=== PATIENT | female | born 1960 | race Caucasian/White ===

== ENCOUNTER 2021-04-05 06:53 | Inpatient (IN) | payer OTHER ==
[~2021-04-05] VITALS: Ht 180.3 cm; Wt 61.2 kg
[~2021-04-05 06:53] MED LIST: AMLODIPINE BESYL5 MG PO; ASPIRIN EC81 MG PO; ATORVASTATIN CA40 MG PO; BASAGLAR K100 UNIT/1 SC; BUMETANIDE2 MG PO; BUMEX 1MG TABLET1 MG PO; CLARITIN 10MG T10 MG PO; D3-501250 MCG PO; DOXYCYCLINE HY100 M2 PO; FUROSEMIDE20 MG PO; HYDRALAZINE HCL50 MG PO; IMDUR ER TAB 3030 MG PO; LOPRESSOR 50 MG50 MG PO; LORATADINE-D 11 EACH PO; NORVASC 5 MG TAB5 MG PO; ONDANSETRON ODT8 MG PO; PANTOPRAZOLE SO40 MG PO; POTASSIUM CHLO20 ME2 PO; SODIUM BICARBO650 MG PO
[2021-04-05 07:39] LABS: HEMOGLOBIN 11.3 gm/dl (12.3-15.3); RED BLOOD COUNT 3.83 M/UL (4.00-5.10); WHITE BLOOD COUNT 7.4 K/UL (4.5-11.0)
[2021-04-05] MEDS ORDERED: BUMETANIDE1 MG PO (11:51)
[2021-04-05] MEDS ORDERED: NOVOLOG FL100 UNIT/1 INJ (11:53)
[2021-04-05] MEDS ORDERED: ISOSORBIDE MONO60 MG PO (11:54)
[2021-04-05] MEDS ORDERED: NOVOLOG MI100 UNIT/1 SC (18:18)
[2021-04-05] MEDS ORDERED: CREON DR 6,0001 EACH PO (18:33)
[2021-04-06 02:32] LABS: ACINETOBACTER BAUMANNII Not Detected (Negative); CANDIDA ALBICANS Not Detected (Negative); CANDIDA KRUSEI Not Detected (Negative); CANDIDA TROPICALIS Not Detected (Negative); ENTEROCOCCUS Not Detected (Negative); ESCHERICHIA COLI Not Detected (Negative); HAEMOPHILUS INFLUENZAE Not Detected (Negative); KLEBSIELLA OXYTOCA Not Detected (Negative); KLEBSIELLA PNEUMONIAE Not Detected (Negative); KPC-CARBAPENEM-RESISTANCE GENE Not Detected (Negative); PROTEUS Not Detected (Negative); PSEUDOMONAS AERUGINOSA Not Detected (Negative); SERRATIA MARCESANS Not Detected (Negative); STAPHYLOCOCCUS Not Detected (Negative); STAPHYLOCOCCUS AUREUS Not Detected (Negative); STREP AGALACTIAE (GROUP B) Not Detected (Negative); STREP PYOGENES (GROUP A) Not Detected (Negative); STREPTOCOCCUS Not Detected (Negative); mecA (METHICILLIN RESIST GENE Not Detected (Negative); vanA/B (VANCOMYCIN RESIST GENE Not Detected (Negative)
[2021-04-06 07:37] LABS: HEMOGLOBIN 10.4 gm/dl (12.3-15.3)
[2021-04-06 07:47] LABS: RED BLOOD COUNT 3.44 M/UL (4.00-5.10)
--- NOTE | 2021-04-06 11:16 | NUR ---
0945- PATIENT LEFT FOR DIAYLSIS AT THIS TIME/
--- NOTE | 2021-04-06 11:39 | NUR ---
1138- CALLED POSITIVE BLOOD CULTURE RESULT TO DR. MEAD.
[2021-04-09 07:26] LABS: HEMOGLOBIN 9.8 gm/dl (12.3-15.3); RED BLOOD COUNT 3.31 M/UL (4.00-5.10)
--- NOTE | 2021-04-09 15:09 | NUR ---
pt is in dialysis
[2021-04-09] MEDS ORDERED: CEFPODOXIME PR200 MG PO (18:49)
[2021-04-09] MEDS ORDERED: LISINOPRIL10 MG PO (18:49)
--- NOTE | 2021-04-09 19:49 | NUR ---
1909- SPOKE WITH THE PATIENT ABOUT HOME HEALTH AND SHE STATES SHE ALREADY HAS HOME HEALTH SET UP AND THEY HAVE BEEN COMING OUT TO HER HOUSE.
== END 2021-04-09 19:45 | disposition home health service (06) | DRG 689 ==
LOC: ER1 06:53 → MED SURG 4 10:33 → CDU 10:33 → MED SURG 4 14:26
PROVIDERS: Emergency Medicine; Physician Assistant Medical; ADMIT Internal Medicine
DX: N30.00 Acute cystitis without hematuria (principal); N18.6 End stage renal disease; Z20.822 Contact with and (suspected) exposure to COVID-19; I13.0 Hypertensive heart and chronic kidney disease with heart failure and stage 1 through stage 4 chronic kidney disease, or unspecified chronic kidney disease; I50.32 Chronic diastolic (congestive) heart failure; Z96.643 Presence of artificial hip joint, bilateral; F17.210 Nicotine dependence, cigarettes, uncomplicated; B96.20 Unspecified Escherichia coli [E. coli] as the cause of diseases classified elsewhere; B96.89 Other specified bacterial agents as the cause of diseases classified elsewhere; E11.649 Type 2 diabetes mellitus with hypoglycemia without coma; E11.22 Type 2 diabetes mellitus with diabetic chronic kidney disease; J44.9 Chronic obstructive pulmonary disease, unspecified; B95.5 Unspecified streptococcus as the cause of diseases classified elsewhere; Z99.2 Dependence on renal dialysis; Z79.82 Long term (current) use of aspirin; Z79.4 Long term (current) use of insulin; Z99.81 Dependence on supplemental oxygen; Z90.49 Acquired absence of other specified parts of digestive tract; Z90.710 Acquired absence of both cervix and uterus; Z88.0 Allergy status to penicillin; Z88.2 Allergy status to sulfonamides; Z82.49 Family history of ischemic heart disease and other diseases of the circulatory system; Z91.15 Patient's noncompliance with renal dialysis
CPT/HCPCS: 36415; 71045; 80048; 80053; 80202; 81001; 82550; 82553; 82962; 83735; 83874; 84484; 85025; 85027; 87040; 87077; 87086; 87150; 87186; 90935; 90937; 93005; 96375; 96376; 99285; G0378; J0692; J0696; J0713; J1580; J1644; J2405; J3370; J7050; U0002

== ENCOUNTER 2021-07-18 11:32 | Observation (INO) | payer OTHER ==
[~2021-07-18] VITALS: Ht 180.3 cm; Wt 75.0 kg
[~2021-07-18 11:32] MED LIST changes: +BUMETANIDE1 MG PO; +CEFPODOXIME PR200 MG PO; +CREON DR 6,0001 EACH PO; +ISOSORBIDE MONO60 MG PO; +LISINOPRIL10 MG PO; +NOVOLOG FL100 UNIT/1 INJ; +NOVOLOG MI100 UNIT/1 SC
[2021-07-18 13:34] LABS: HEMOGLOBIN 9.5 gm/dl (12.3-15.3); RED BLOOD COUNT 3.28 M/UL (4.00-5.10); WHITE BLOOD COUNT 9.9 K/UL (4.5-11.0)
[2021-07-19 11:32] LABS: ADENOVIRUS F 40/41 Not Detected (Negative); ASTROVIRUS Not Detected (Negative); CAMPYLOBACTER Not Detected (Negative); CRYPTOSPORIDIUM Not Detected (Negative); E.COLI 0157 Not Detected (Negative); ENTAMOEBA HISTOLYTICA Not Detected (Negative); ENTEROAGGREGATIVE E.COLI (EAEC Not Detected (Negative); ENTEROPATHOGENIC E.COLI (EPEC) Not Detected (Negative); ENTEROTOXIGENIC E.COLI (ETEC) Not Detected (Negative); GIARDIA LAMBLIA Not Detected (Negative); NOROVIRUS GI/GII Not Detected (Negative); PLESIOMONAS SHIGELLOIDES Not Detected (Negative); ROTOVIRUS A Not Detected (Negative); SALMONELLA Not Detected (Negative); SAPOVIRUS Not Detected (Negative); SHIG/ENTEROINVAS.ECOLI (EIEC) Not Detected (Negative); SHIGA-LIK TOX.PRO.E.COLI (STEC Not Detected (Negative); VIBRIO Not Detected (Negative); VIBRIO CHOLERAE Not Detected (Negative); YERSINIA ENTEROCOLITICA Not Detected (Negative)
[2021-07-19 16:44] LABS: CLOSTRIDIUM DIFFICILE TOX A/B Not Detected (Negative)
[2021-07-19] MEDS ORDERED: ATORVASTATIN CA40 MG PO (17:31)
[2021-07-19] MEDS ORDERED: ASPIRIN EC81 MG PO (17:31)
[2021-07-19] MEDS ORDERED: BUMETANIDE1 MG PO (17:32)
[2021-07-19] MEDS ORDERED: CETIRIZINE HCL10 MG PO (17:32)
[2021-07-19] MEDS ORDERED: LORATADINE10 MG PO (17:34)
[2021-07-19] MEDS ORDERED: ISOSORBIDE MONO30 MG PO (17:34)
[2021-07-19] MEDS ORDERED: NOVOLOG FL100 UNIT/1 SC (17:35)
[2021-07-19] MEDS ORDERED: NOVOLIN 70100 UNITS/ SC (17:35)
[2021-07-19] MEDS ORDERED: CREON DR 6,0001 EACH PO (17:36)
[2021-07-19] MEDS ORDERED: PROTONIX40 MG PO (17:36)
[2021-07-20 04:10] LABS: HEMOGLOBIN 8.6 gm/dl (12.3-15.3); WHITE BLOOD COUNT 8.8 K/UL (4.5-11.0)
[2021-07-20 04:11] LABS: RED BLOOD COUNT 2.89 M/UL (4.00-5.10)
--- NOTE | 2021-07-20 17:31 | NUR ---
MULTIPLE CONVERSATIONS WITH PT, PT'S SPOUSE AND CASE MANAGEMENT RE; DISCHARGE PLANS. INITIALLY REFUSED TO TAKE PT HOME. STATES HE IS UNABLE TO CARE FOR HER AT THE PRESENT TIME. CASE MANAGEMENT AWARE AND WORKING ON PLACEMENT. 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 AFTER EXPLAINING TO SPOUSE THAT PT CAN AMBULATE WITH [facility] HE IS WILLING TO TAKE HER HOME. HOME HEALTH NOTIFIED OF NEED TO RESUME SERVICES. CONCERNS ABOUT HOW THE PT WILL BE CARED FOR AT HOME WERE VOICED BY HOME HEALTH AND THEY ARE UNSURE IF THEY CAN RESUME HER CARE. CASE MANAGEMENT NOTIFIED AND WILL CONTACT HOME HEALTH. [facility] REFERRAL MADE DUE TO PT'S DISHEVELED APPEARANCE AND THAT SHE HAD LICE AND POSSIBLE SCABBIES AT ADMISSION.
--- NOTE | 2021-07-20 19:33 | NUR ---
DC HELD R/T PT EVAL IN AM FOR DC RECOMMENDATIONS FOR AMB.
== END 2021-07-21 12:40 | disposition home or self-care (01) ==
LOC: ER1 11:32 → CDU 07-19 13:30 → CCU 07-19 13:30
PROVIDERS: Orthopaedic Surgery; Physician Assistant; Physician Assistant Medical; ADMIT Internal Medicine
PROC: 3E0T3BZ Introduction of Anesthetic Agent into Peripheral Nerves and Plexi, Percutaneous Approach (ICD-10-PCS; 2021-07-20)
PROC: 0QSF04Z Reposition Left Patella with Internal Fixation Device, Open Approach (ICD-10-PCS; principal; 2021-07-20 11:30)
DX: S82.032A Displaced transverse fracture of left patella, initial encounter for closed fracture (principal); Z20.822 Contact with and (suspected) exposure to COVID-19; E11.22 Type 2 diabetes mellitus with diabetic chronic kidney disease; I13.2 Hypertensive heart and chronic kidney disease with heart failure and with stage 5 chronic kidney disease, or end stage renal disease; E11.65 Type 2 diabetes mellitus with hyperglycemia; N18.6 End stage renal disease; I50.32 Chronic diastolic (congestive) heart failure; J44.9 Chronic obstructive pulmonary disease, unspecified; J96.11 Chronic respiratory failure with hypoxia; E11.21 Type 2 diabetes mellitus with diabetic nephropathy; Z99.2 Dependence on renal dialysis; F17.200 Nicotine dependence, unspecified, uncomplicated; R77.8 Other specified abnormalities of plasma proteins; M85.862 Other specified disorders of bone density and structure, left lower leg; B85.2 Pediculosis, unspecified; W18.30XA Fall on same level, unspecified, initial encounter; Y92.512 Supermarket, store or market as the place of occurrence of the external cause; Z79.4 Long term (current) use of insulin; Z79.82 Long term (current) use of aspirin; Z79.899 Other long term (current) drug therapy; Z88.0 Allergy status to penicillin; Z88.2 Allergy status to sulfonamides; Z91.15 Patient's noncompliance with renal dialysis; Z99.81 Dependence on supplemental oxygen
CPT/HCPCS: 29505; 36415; 36600; 51701; 71045; 80048; 80053; 81001; 82803; 82962; 83036; 83735; 85025; 85027; 87507; 90937; 93005; 96372; 96374; 97116; 97161; 97530; 99285; G0378; J1100; J1650; J2250; J2405; J2795; J3010; J3370; J7030; J7120; U0002